=== PATIENT | female | born 1955 | race Caucasian/White ===

== ENCOUNTER 2023-11-10 12:51 | Outpatient (AMB) | payer OTHER, SELFPAY ==
--- NOTE | 2023-11-10 13:04 | HO.SPINEOV ---
Intake Visit Reasons: cervicalgia Intake Note: Mr. Moscoso is here today c/o Neck pain. 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 she is a very nice 67-year-old female presents to the office today for evaluation of chronic neck pain that she has had for 18 years. It goes on both sides of her neck laterally but more on the left. It does give her some restricted range of motion turning her head. She works in a bakery and is able to do most of the tasks that she needs to but spends most of the day with her head in a flexed posture and this can bother her as well. She uses he, ice, Tylenol, methocarbamol, gabapentin, Vicodin. She tried cervical traction previously. She has done physical therapy. She underwent numerous cortisone injections at your office but none of them unfortun She does not have any pain radiating down the arms but does get tingling down her arms from time to time. She is here today with an MRI done at [facility] showing multiple levels of degenerative disc disease. ately helped much. PMH: Hysterectomy, knee surgery, cholecystectomy, fibromyalgia, hypertension, carpal tunnel release Social hx: she smokes pot daily, does not smoke cigarettes or use any alcohol Medications: methocarbamol, Vicodin p.r.n., gabapentin, valsartan, amlodipine, omeprazole Allergies: penicillin Physical exam: patient is awake alert oriented, somewhat anxious here with her daughter today, strength and reflexes all normal, gait is normal Imaging review: cervical MRI done at [facility], done in 2023, I compared this to MRIs done in 2018 and 2010. She has moderate disc degeneration at C3-4 With right foraminal stenosis, mild disc degeneration at C4-5 and [id number]-[id number] disc degeneration at C6-7 with bilateral neural foraminal stenosis. there was no compression of the spinal cord or major misalignments of the spinal column. Impression: 67-year-old female presents to the office today for chronic neck pain for 18 years, who has what amounts to [id number] degenerative disc disease in the neck. 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 Maybe C6-7 is slightly worse in terms of his degeneration but it has not all that bad. I think mostly what she is dealing with his muscular tension. I would not be exactly sure what to offer her in terms of a surgical target because nothing looks bad enough at this point that it would need surgery. I explained to her that this is the most challenging of cases when there is no specific localizing part of the spinal column that can explain the pain. especially in light of the fact that none of the injections helped. I told her if things get absolutely debilitating We could see her back and rediscuss but for now she would like to just continue on with her current [facility]. Thank you for allowing us to care for your patient. The total time spent with this visit with this patient was 45 minutes reviewing history, physical exam, cervicalimaging review, and implementation of treatment plan or further diagnostic testing Oswaldo Carmona MD,PhD [facility] Coding Level of Care Code New Pt Level 4 (97692) Diagnoses Neck pain M54.2
== END 2023-11-10 13:38 | disposition home or self-care (01) ==
PROVIDERS: PCP Internal Medicine; Referring Provider Physician Assistant; Visit Provider Physician Assistant
DX: M54.2 Cervicalgia (principal)
CPT/HCPCS: 99204

== ENCOUNTER → 2023-11-10 12:51 | Outpatient (BNVA) | payer OTHER, SELFPAY | PROVIDERS: PCP Internal Medicine; Visit Provider Physician Assistant | DX: M54.2 Cervicalgia (principal) | CPT/HCPCS: 99202 ==